=== PATIENT | female | born 1985 | race Caucasian/White ===

== ENCOUNTER → 2018-04-14 13:38 | Outpatient (CLI) | payer MEDICAID, SELFPAY ==
[2018-04-14 16:18] LABS: Progesterone Level 0.44 ng/mL (See Comment)
== END ==
PROVIDERS: Visit Provider Obstetrics & Gynecology
DX: N92.6 Irregular menstruation, unspecified (principal); E28.2 Polycystic ovarian syndrome
CPT/HCPCS: 36415; 84144

== ENCOUNTER → 2018-11-15 17:16 | Outpatient (CLI) | payer MEDICAID, SELFPAY ==
[2016-08-10 06:44] VITALS: BMI 57.9
[2018-11-20 10:13] LABS: HPV Reflexed? NOT INDICATED
== END ==
PROVIDERS: Visit Provider Obstetrics & Gynecology
DX: Z12.4 Encounter for screening for malignant neoplasm of cervix (principal)
CPT/HCPCS: 88175; G0145

== ENCOUNTER 2018-12-12 22:00 | Emergency (ER) | payer MEDICAID, SELFPAY ==
[2018-12-12 22:00] VITALS: BP 189/104; PULSE 81; RESP 18; TEMP 36.4; O2SAT 97; BMI 61.1
--- NOTE | 2018-12-12 22:26 | ED.DCSUM_ITS ---
- ER Visit Summary Date of Service: 12/12/18 Chief Complaint: Dental pain, dental abscess History of Present Illness: The patient is a 33 F who is otherwise healthy presents to the emergency department and collaterals. Patient symptoms began today. She states she has multiple cavities. She is begun to have some swelling in her right upper jaw. She denies any trauma. She denies any fever or chills. She has no history of immunosuppression. She has not seen a dentist in over a year. She has not taken anything for it. Physical Examination: Exam is relatively unremarkable. Oropharynx is widely patent. Some mental space is soft. There is no evidence of Ronaldo angina. Patient does have significant widespread dental disease. She does have cavity of tooth 3 with some swelling about the gumline. No focal abscess. No trismus. No stridor. Test Results: [] Emergency Department Course and Treatment: Patient presents with early dental abscess. There is nothing that would benefit from incision and drainage. She will be started on Augmentin. She is given a short course of analgesics and anti-inflammatories. She is also given outpatient dental resources. She has no evidence of Ronaldo angina. There is no trismus. I do think she is safe for outpatient therapy. Treatment Plan: [] Disposition: Discharge Impression: 1. Periapical abscess of tooth 3 This note was generated with [employer] dictation software. It may contain incorrect words, spelling, and punctuation that were not noted in review of the chart prior to signing ED Disposition - Plan for ED Patient: Instructions: ED Dental Abscess Facial Cellulitis Prescriptions: Amox/Clavulanate Tablet [Augmentin Tablet] 875 mg PO Q12H #20 tab Naproxen [Naprosyn] 500 mg PO BID #14 tab Referrals: Jesus Clemente [Primary Care Provider] -
[2018-12-12] MEDS: Amox/Clavulanate 875 MG Tablet PO (22:51)
[2018-12-12] MEDS: HYDROcodone Bitartrate/Apap 5/325 Tablet PO (22:51)
--- NOTE | 2018-12-12 22:53 | ED.RN ---
pt given written and verbal discharge instructions and home going prescriptions. pt verbalizes understanding and denies any further questions. pt educated on home pack. ambulates out of dept with significant other.
== END 2018-12-12 22:54 | disposition home or self-care (01) ==
PROVIDERS: Emergency Provider Emergency Medicine; Family Provider Family Medicine
DX: K04.7 Periapical abscess without sinus (principal); K21.9 Gastro-esophageal reflux disease without esophagitis; Z72.0 Tobacco use
CPT/HCPCS: 99283

== ENCOUNTER 2020-01-06 17:05 | Emergency (ER) | payer MEDICAID, SELFPAY ==
[2020-01-06 17:06] VITALS: BP 182/120; PULSE 97; RESP 18; TEMP 36.4; O2SAT 96; BMI 55.7
--- NOTE | 2020-01-06 17:27 | ED.VIS.UPPEX ---
History of Present Illness Chief Complaint: Upper Extremity Injury Informant: Patient Occurred: Hours - 1 Mechanism/Context: Fall - off porch accidentally Context: Sudden Onset Timing: Continuous Quality of Pain: Aching Location: right elbow Current Severity: Moderate Maximum Severity: Severe Worsened by: movement Relieved by: remaining still Associated Symptoms: Parasthesia - fingers 2-5, Loss of Funtion. Negative for: Weakness Narrative: Patient states she was watering her garza and accidentally fell off of her porch, landing on the sidewalk below on her right elbow. She denies any other injuries. [id number]. - Past Medical History (1) GERD (gastroesophageal reflux disease) Status: Chronic Past Medical History - Allergies and Home Meds Allergies/Adverse Reactions: Allergies tramadol Adverse Reaction (Verified 01/06/20 17:06) Itching Primary Care Physician: Jesus Clemente [Primary Care Provider] - Smoking Status: Current every day smoker Review of Systems Musculoskeletal: Reports: Extremity Pain. Denies: Neck pain, Back pain Skin: Reports: Abrasions. Denies: Rash, Wounds Neurological: Reports: Parasthesia. Denies: Headache, Weakness Physical Exam Vital Signs/Narrative: Vital Signs Temp Pulse Resp BP Pulse Ox 01/06/20 17:06 97.5 F L 97 18 182/120 H 96 General: Well nourished, Well developed, Obese, - - nad Head: Normocephalic, Atraumatic Eyes: Perrl, EOMI ENT: No Trauma, Moist Mucous Membranes Extremeties: Limited range of motion right elbow. Tender at the olecranon, right radial head. No deformities. Sensation grossly intact but decreased fingers 2-5, motor function of median, radial, ulnar nerves including PIN and AIN branches intact distally. No sign of other injury. Skin: Normal color, No rash, Trauma - abrasion right olecranon, skin intact Neurological: Alert, Oriented x3, Cranial nerves II-XII grossly intact, Normal Strength, Normal Sensation, Normal Gait Psychological: Normal affect, Normal Mood Diagnostic/Tx/Re-eval Clinical Impression(s) from Imaging Studies Elbow X-Ray 01/06/20 17:34 IMPRESSION: Normal x-ray examination of the elbow. Electronically Signed: Leonardo Pruett, at 18:31 EDT Tel , Service support , - Medical Decision Making Exam is most consistent with a radial head injury. Her x-rays are unremarkable, however that does not necessarily rule out a nondisplaced crack of the radial head. She is placed in a sling, offered analgesics which she declines, and will follow-up with orthopedics as an outpatient. She is comfortable with that plan. ED Disposition - Plan for ED Patient: Disposition: Home or Assisted Living Diagnosis: Right radial head fracture Instructions: ED Fx Radial Head Referrals: Jesus Clemente [Primary Care Provider] - Juan Vega DO [STAFF PHYSICIAN] - 5-7 Days
--- NOTE | 2020-01-06 17:34 | RAD_ITS ---
STUDY: X-RAY - RIGHT ELBOW REASON FOR EXAM: Female, 34 years old. RIGHT ELBOW/FOREARM PAIN AFTER FALL TECHNIQUE: 3 view(s) of the elbow. COMPARISON: None. FINDINGS: Normal visualized humerus, radius and ulna. Normal radiocapitellar and ulnotrochlear articulations. The soft tissue structures are unremarkable. RAD/Elbow min 3 Views IMPRESSION: Normal x-ray examination of the elbow. Electronically Signed: Leonardo Pruett, at 18:31 EDT Tel , Service support ,
[2020-01-06 18:58] VITALS: BP 164/104; PULSE 76; RESP 16; O2SAT 96
--- NOTE | 2020-01-06 19:02 | ED.RN ---
DISCHARGE INSTRUCTIONS GIVEN TO AND REVIEWED WITH PATIENT, PATIENT DENIES QUESTIONS OR CONCERNS AND VOICES UNDERSTANDING OF DISCHARGE INSTRUCTIONS. PT AMBULATES OUT OF ROOM WITHOUT DIFFICULTY.
== END 2020-01-06 19:04 | disposition home or self-care (01) ==
PROVIDERS: Emergency Provider Emergency Medicine
DX: S52.121A Displaced fracture of head of right radius, initial encounter for closed fracture (principal); F17.200 Nicotine dependence, unspecified, uncomplicated; K21.9 Gastro-esophageal reflux disease without esophagitis; W17.89XA Other fall from one level to another, initial encounter
CPT/HCPCS: 73080; 99283

== ENCOUNTER 2020-05-29 01:37 | Emergency (ER) | payer MEDICAID, SELFPAY ==
[2020-05-29 01:38] VITALS: BP 158/101; PULSE 89; RESP 16; TEMP 36.2; O2SAT 97; BMI 65.1
[2020-05-29 01:42] VITALS: BP 158/101; PULSE 89; RESP 16; TEMP 36.2; O2SAT 97
--- NOTE | 2020-05-29 01:58 | ED.VIS.GEN ---
History of Present Illness Chief Complaint: Wound Informant: Patient Narrative: Patient is a 34-year-old previously healthy female who presents to the emergency department for wound on her lower abdomen. She states that under her pannus she gets rashes easily. She typically tries to keep the area dry and they heal on their self. Over the past 2 days she noticed that this area now opened up which it has never done before. No discharge from the area. She denies any systemic symptoms including any fever/chills nausea or nausea/vomiting. No change in bowel habits. No urinary symptoms. No rashes elsewhere. She tried to put peroxide over the area and keep the area dry this time but did not seem to help. Past Medical History - Allergies and Home Meds Allergies/Adverse Reactions: Allergies tramadol Adverse Reaction (Verified 05/29/20 01:43) Itching Primary Care Physician: Jesus Clemente [Primary Care Provider] - 3-5 Days if not improving Prior records reviewed: Yes Past Medical History: None Surgical History: noncontributory Smoking Status: Current every day smoker Review of Systems All systems negative except as indicated General: Denies: Chills, Fever, Sweats Eyes: Denies: Visual changes - bilaterally, Diplopia ENT: Denies: Rhinorrhea, Sore throat Cardiovascular: Denies: Chest pain, Palpitations Respiratory: Denies: Dyspnea, Cough, Dyspnea on exertion Gastrointestinal: Denies: Abdominal pain, Nausea, Vomiting, Diarrhea Genitourinary: Denies: Dysuria, Hematuria, Frequency Musculoskeletal: Denies: Back pain, Extremity Pain Skin: Reports: Rash, Wounds Neurological: Denies: Headache, Weakness, Numbness Physical Exam Vital Signs/Narrative: Vital Signs Temp Pulse Resp BP Pulse Ox 05/29/20 01:42 97.1 F L 89 16 158/101 H 97 05/29/20 01:38 97.1 F L 89 16 158/101 H 97 Inital Vital Signs reviewed: Yes General: Well nourished, Obese, No Acute Distress Head: Normocephalic, Atraumatic Eyes: Perrl, EOMI ENT: Moist mucous membranes, No rhinorrhea Neck: Supple, Nontender Cardiovascular: Regular rate, Regular rhythm, No murmurs Respiratory: No distress, CTA bilaterally, Chest nontender Abdomen: Soft, Nontender, Nondistended, Normal bowel sounds Back: Nontender, Normal Inspection Extremities: Nontender, No edema Skin: Normal color, No rash, - - Under the pannus in the left lower quadrant there is an opening in the skin that is approximately 1 cm long in the skin crease. The rest of the area under the pannus is erythematous and appears to have a yeast infection. No warmth or significant tenderness in this area. No discharge present. Neurological: Alert, Oriented x3 Psychological: Normal affect, Normal Mood Diagnostic/Tx/Re-eval - Medical Decision Making Patient presents to the emergency department for an opening of her skin crease. No evidence of cellulitis but there does appear to be a yeast infection. We will place her on a clotrimazole cream and she is advised to keep the area clean and dry. No repair is indicated at this time. We will have it heal from the inside out. She is to follow-up with her PCP. If the area starts to swell, become very tender or have streaking around it she will require antibiotic treatment. She is warned to return to the emergency department with the symptoms. She otherwise will be discharged home in stable condition. She understands and is agreeable with this plan. All questions answered. ED Disposition - Plan for ED Patient: Disposition: Home or Assisted Living Diagnosis: Open wound, Tinea corporis Instructions: ED Fungal Skin Infection Tinea Referrals: Jesus Clemente [Primary Care Provider] - 3-5 Days if not improving
== END 2020-05-29 02:20 | disposition home or self-care (01) ==
PROVIDERS: Emergency Provider Emergency Medicine
DX: S31.109A Unspecified open wound of abdominal wall, unspecified quadrant without penetration into peritoneal cavity, initial encounter (principal); B35.4 Tinea corporis; F17.200 Nicotine dependence, unspecified, uncomplicated; E66.9 Obesity, unspecified; X58.XXXA Exposure to other specified factors, initial encounter
CPT/HCPCS: 99281

== ENCOUNTER → 2020-06-16 11:50 | Outpatient (CLI) | payer MEDICAID, SELFPAY ==
[2020-05-29 01:38] VITALS: BMI 65.1
--- NOTE | 2020-06-16 13:57 | STRESSREP_ITS ---
Stress Test Report Exercise stress test. Stress protocol: Resting EKG demonstrates normal sinus rhythm with rate of 88 bpm normal intervals are noted resting blood pressure is 122/88 mmHg. The patient exercised according to the regular Anders protocol for a total duration of 3 minutes. The maximum heart rate attained was 171 bpm which was 91% of maximum p redicted heart rate the maximum workload was 4.6 metabolic equivalents. The patient maintained sinus rhythm throughout the recording with occasional premature ventricular complexes. The peak blood pressure was 200/110 mmHg. There were no ST or T wave changes noted at rest or with exercise to suggest ischemia. No clinical angina was noted. Conclusion: Exercise stress test with no EKG criteria for ischemia at a low workload. Low workload may affect sensitivity for detection of ischemia.
== END ==
PROVIDERS: Referring Provider Family Medicine; Visit Provider Family Medicine
DX: R07.9 Chest pain, unspecified (principal)
CPT/HCPCS: 93017

== ENCOUNTER 2021-08-10 20:41 | Emergency (ER) | payer MEDICAID, SELFPAY ==
[2021-08-10 20:44] VITALS: BP 156/96; PULSE 105; RESP 18; TEMP 35.6; O2SAT 96; BMI 61.9
--- NOTE | 2021-08-10 21:22 | ED.RN ---
Pt seen leaving department.
== END 2021-08-10 21:20 | disposition left against medical advice (07) ==
LOC: ED 21:21
DX: Z53.21 Procedure and treatment not carried out due to patient leaving prior to being seen by health care provider (principal)

== ENCOUNTER 2022-01-24 19:18 | Emergency (ER) | payer MEDICAID, SELFPAY ==
[2022-01-24 19:19] VITALS: BP 138/93; PULSE 104; RESP 16; TEMP 36.9; O2SAT 98; BMI 60.7
[2022-01-24] MEDS: Neomycin/Polymyxin/Dexameth 5ML OPTH.BTL 5 DRP OTIC (19:50)
--- NOTE | 2022-01-24 21:50 | EDS_ITS ---
HPI History of Present Illness Chief Complaint: Abscess [facility] Medical History Diabetes GERD (gastroesophageal reflux disease) HTN (hypertension) Home Medications omeprazole 20 mg capsule,delayed release 20 mg PO DAILY 08/03/16 [History Last Taken Unknown] metoprolol succinate 25 mg tablet,extended release 24 hr 25 mg PO DAILY 01/06/20 [History Last Taken Unknown] hydrochlorothiazide 25 mg tablet 12.5 mg PO DAILY 05/29/20 [History Last Taken Unknown] cholecalciferol (vitamin D3) 25 mcg (1,000 unit) capsule 25 mcg PO DAILY 04/03/21 [History Last Taken Unknown] lisinopril 10 mg tablet 10 mg PO DAILY 04/03/21 [History Last Taken Unknown] metformin 500 mg tablet 500 mg PO DAILY 04/03/21 [History Last Taken Unknown] gssdxorj-aqfsflrfq-cfjfhplin 3.5 mg-10,000 unit/mL-1 % ear drops,susp 4 drp LEFT EAR Q6H 7 days #10 mL 01/24/22 [Rx Last Taken Unknown] Allergy/AdvReac Type Severity Reaction Status Date / Time tramadol AdvReac Itching Verified 01/24/22 19:18 Family History Other Diabetes Heart disease Hypertension Multiple sclerosis Seizures Surgical History H/O removal of cyst Social History Smoking Status: Current every day smoker tobacco type: cigarettes ROS ROS ED Review of Systems ROS Unobtainable: Denies due to encephalopathy Constitutional Constitutional ED: Denies chills or fever(s) Eyes Eyes: Denies blurry vision ENT ENT ED: Reports ear pain; Denies rhinorrhea or sore throat Cardiovascular Cardiovascular: Denies chest pain Respiratory/Chest Respiratory/Chest: Denies cough Gastrointestinal Gastrointestinal: Denies abdominal pain Genitourinary Genitourinary ED: Denies dysuria Musculoskeletal Musculoskeletal: Denies arthralgias Integumentary Denies abscess Neurologic Neurologic: Denies headache(s) Psychiatric Psychiatric: Denies anxiety Endocrine Endocrinology: Denies cold intolerance Allergic/Immunologic Allergic/Immunologic ED: Denies mouth swelling EXAM Physical Exam Const Vital Signs: 01/24/22 19:19 Temperature 98.5 F Temperature Source Temporal Pulse Rate 104 H Respiratory Rate 16 Blood Pressure 138/93 H Blood Pressure Mean 108 Pulse Ox 98 Oxygen Delivery Method Room Air Positive well nourished and well developed General Appearance ED: well developed HEENT Reports moist mucous membranes HEENT Narrative: Left external canal is edematous and very tender Eyes EOMs intact bilaterally Neck no lymphadenopathy Resp normal respiratory effort Neuro oriented x3 and CN's II-XII intact bilaterally Psych mental status grossly normal Skin no rashes or lesions noted MDM MDM MDM Narrative Medical decision making narrative: Patient has otitis externa. Ear wick was placed by me. She was started on treatment with neomycin/polymyxin/hydrocortisone drops. Follow-up with ENT. Impression #1 left otitis externa Discharge Plan Triage Chief Complaint: Abscess ED Provider: David Gastelum Dx/Rx/DC Orders Instructions: ED External Ear Infection (Adult) Prescriptions: New elovzros-vuvftyihf-OG 3.5-10,000-1 mg/mL-unit/mL-% drops,suspension 4 drp LEFT EAR Q6H 7 Days Qty: 10 0RF No Action metformin 500 mg tablet 500 mg PO DAILY cholecalciferol (vitamin D3) 25 mcg (1,000 unit) capsule 25 mcg PO DAILY lisinopril 10 mg tablet 10 mg PO DAILY omeprazole 20 MG capsule 20 mg PO DAILY metoprolol succinate 25 MG tablet extended release 24 hr 25 mg PO DAILY hydrochlorothiazide 25 MG tablet 12.5 mg PO DAILY Primary Care Provider: Jesus Clemente Referrals: Neal Ugalde MD [STAFF PHYSICIAN] - Disposition Disposition: Home, Self Care Discharge Date/Time: 01/24/22 19:55
== END 2022-01-24 19:55 | disposition home or self-care (01) ==
PROVIDERS: Emergency Provider Emergency Medicine; Visit Provider Emergency Medicine
DX: H60.92 Unspecified otitis externa, left ear (principal); F17.210 Nicotine dependence, cigarettes, uncomplicated
CPT/HCPCS: 99282

== ENCOUNTER 2023-03-29 19:07 | Emergency (ER) | payer MEDICAID, SELFPAY ==
[2023-03-29 19:09] VITALS: BP 135/89; PULSE 95; RESP 16; TEMP 36.3; O2SAT 95; BMI 65.2
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
== END 2023-03-29 20:34 | disposition home or self-care (01) ==
PROVIDERS: Emergency Provider Student in an Organized Health Care Education/Training Program; Visit Provider Student in an Organized Health Care Education/Training Program
DX: S16.1XXA Strain of muscle, fascia and tendon at neck level, initial encounter (principal); E11.9 Type 2 diabetes mellitus without complications; I10 Essential (primary) hypertension; F17.210 Nicotine dependence, cigarettes, uncomplicated; K21.9 Gastro-esophageal reflux disease without esophagitis; Z79.84 Long term (current) use of oral hypoglycemic drugs; Z79.899 Other long term (current) drug therapy; V43.52XA Car driver injured in collision with other type car in traffic accident, initial encounter
CPT/HCPCS: 99282

== ENCOUNTER → 2023-07-27 | Outpatient (CLI) | payer MEDICAID, SELFPAY ==
--- NOTE | 2023-07-27 13:10 | NEURO ---
NCS and/or EMG Patient Report Ordering Doctor: Laya Snow NP DATE OF SERVICE: 07/27/23 Adelina presents electrodiagnostic testing of the upper limbs. She has numbness and tingling in both hands, worse on the right side. She reports intermittent cramping in the arms. Electrodiagnostic findings: Right median motor nerve demonstrates prolonged latency with normal amplitude and conduction velocity. Left median motor nerve demonstrates prolonged latency with normal amplitude and reduced conduction velocity. Ulnar motor responses within normal limits bilaterally. Prolonged right median F?wave is noted. Prolonged median sensory latency at the wrist bilaterally. Normal ulnar and radial sensory responses. Needle EMG testing was performed in the upper limbs. All muscles tested showed no evidence of denervation with normal motor unit action potentials. Electrodiagnostic impression: This is an abnormal study in the upper limbs. 1. Electrodiagnostic findings suggestive of bilateral median mononeuropathy. This is consistent with a moderate bilateral carpal tunnel syndrome. 2. No electrodiagnostic evidence is noted for ulnar neuropathy, including cubital tunnel syndrome. 3. No electrodiagnostic evidence is noted for cervical radiculopathy. Multi Select Codes Neurology Neurology Interp Codes: 47528-39 Musc test done w/n test comp (interp) (2) and 01734-57 Nrv cndj test 9-10 studies (interp)
== END | disposition home or self-care (01) ==
LOC: PSN 09:58
PROVIDERS: PCP Family Medicine; Referring Provider Registered Nurse; Visit Provider Registered Nurse
DX: R20.0 Anesthesia of skin (principal)
CPT/HCPCS: 95886; 95911

== ENCOUNTER 2023-12-04 15:28 | Emergency (ER) | payer MEDICAID, SELFPAY ==
[2023-12-04 15:29] VITALS: BP 144/90; PULSE 100; RESP 16; TEMP 36.4; O2SAT 95; BMI 61.4
--- NOTE | 2023-12-04 15:41 | EX.ED.UPPERE ---
HPI History of Present Illness Chief Complaint: Wound Check Narrative Narrative: 38-year-old female with history of carpal tunnel syndrome status post carpal tunnel surgery repair bilaterally postop day #3. Patient surgeon was Dr. Sharif Thrasher. He is at [facility] in [place]. Patient states that she was told she can take her dressings off today when she took them off she thought that there was pus. She states that she has not contacted her surgeon. She states that she does not have any increased pain. She has not had fevers or chills. She does deny any trauma. [facility] Medical History Diabetes GERD (gastroesophageal reflux disease) HTN (hypertension) Home Medications omeprazole 20 mg capsule,delayed release 20 mg PO DAILY 08/03/16 [History Last Taken Unknown] metoprolol succinate 25 mg tablet,extended release 24 hr 25 mg PO DAILY 01/06/20 [History Last Taken Unknown] lisinopril 10 mg tablet 10 mg PO DAILY 04/03/21 [History Last Taken Unknown] metformin 500 mg tablet 500 mg PO DAILY 04/03/21 [History Last Taken Unknown] cyclobenzaprine 10 mg tablet 10 mg PO TID PRN Muscle Spasm #20 TABLETS 03/29/23 [Rx Last Taken Unknown] empagliflozin 10 mg tablet (Jardiance) 10 mg PO DAILY 03/29/23 [History Last Taken Unknown] glimepiride 2 mg tablet (Amaryl) 2 mg PO DAILY 03/29/23 [History Last Taken Unknown] Allergy/AdvReac Type Severity Reaction Status Date / Time tramadol AdvReac Itching Verified 12/04/23 15:29 Family History Other Diabetes Heart disease Hypertension Multiple sclerosis Seizures Surgical History H/O removal of cyst Social History Smoking Status: Current every day smoker tobacco type: cigarettes ROS ROS ED Constitutional Constitutional ED: Denies chills, fever(s) or sweats Eyes Eyes: Denies blurry vision or change in vision ENT ENT ED: Denies ear pain or sore throat Cardiovascular Cardiovascular: Denies chest pain, palpitations or racing heartbeat Respiratory/Chest Respiratory/Chest: Denies cough, dyspnea or sputum Gastrointestinal Gastrointestinal: Denies abdominal pain, constipation, diarrhea, nausea or vomiting Genitourinary Genitourinary ED: Denies dysuria, hematuria or urinary frequency Musculoskeletal Musculoskeletal: Denies arthralgias, myalgias or neck pain Integumentary Reports other Details: Bilateral hand ; Denies abscess, Abrasions or rash Neurologic Neurologic: Denies headache(s), paresthesias or weakness Psychiatric Psychiatric: Denies anxiety, depression, suicidal ideation or suicidal thoughts Endocrine Endocrinology: Denies polydipsia or polyuria EXAM Physical Exam Const Vital Signs: 12/04/23 15:29 Temperature 97.6 F L Temperature Source Temporal Pulse Rate 100 Respiratory Rate 16 Blood Pressure 144/90 H Blood Pressure Mean 108 Pulse Ox 95 Oxygen Delivery Method Room Air Positive well nourished HEENT Reports moist mucous membranes Eyes PERRL Resp normal respiratory effort Cardio regular rate and regular rhythm Extremity Extremity Narrative: Midline bilateral surgical wounds measuring approximately 1.5 cm vertically with good approximation of the wound margins. There does not appear to be any drainage.Hands are neurovascular intact. No induration or erythema. Neuro oriented x3 Sensorium / Orientation: alert MDM MDM MDM Narrative Medical decision making narrative: Patient presents for evaluation of her carpal tunnel incision sites. She initially thought she had some drainage from the right 1 however looking at this it appears to be clean, dry. The area that she thought was white is a piece of skin which is slightly pale but is intact. There is no tenderness or drainage from the sites bilaterally. Sutures are in place. No redness or signs of infection. Patient counseled on this. I did offer to call her surgeon to see if there is any further instructions and he would give her although she states that she can email him. I recommended she follow his instructions postoperatively. Return precautions discussed. Impression: 1. Postoperative wound check Discharge Plan Triage Chief Complaint: Wound Check ED Provider: Beka Hirsch Dx/Rx/DC Orders Instructions: ED Post Op Wound Check, General Prescriptions: No Action metformin 500 mg tablet 500 mg PO DAILY lisinopril 10 mg tablet 10 mg PO DAILY omeprazole 20 MG capsule 20 mg PO DAILY metoprolol succinate 25 MG tablet extended release 24 hr 25 mg PO DAILY Jardiance 10 mg tablet 10 mg PO DAILY glimepiride [Amaryl] 2 mg tablet 2 mg PO DAILY cyclobenzaprine 10 mg tablet 10 mg PO TID PRN (Reason: Muscle Spasm) Qty: 20 0RF Primary Care Provider: Jesus Clemente Referrals: Jesus Clemente MD [Primary Care Provider] - Disposition Disposition: Home, Self Care
[2023-12-04 15:55] VITALS: BP 144/89; PULSE 95; RESP 18; TEMP 36.7; O2SAT 100
== END 2023-12-04 15:56 | disposition home or self-care (01) ==
PROVIDERS: Emergency Provider Student in an Organized Health Care Education/Training Program; PCP Family Medicine; Visit Provider Student in an Organized Health Care Education/Training Program
DX: Z47.89 Encounter for other orthopedic aftercare (principal); E11.9 Type 2 diabetes mellitus without complications; F17.210 Nicotine dependence, cigarettes, uncomplicated; I10 Essential (primary) hypertension
CPT/HCPCS: 99282